=== PATIENT | female | born 1945 | race Caucasian/White ===

== ENCOUNTER 2022-01-22 10:30 | Inpatient (IN) ==
[~2022-01-22 10:30] MED LIST: Buffered Lidocaine 1% SYRIN 1 ml INTRADERM ONE; HYDROcodone/ACETAMIN 5/325 mg TAB PO PRN; Lactated Ringers 1000 ml BAG 1,000 ML IV SCH; Metoclopramide 5 MG/ML VIAL (10 mg) IV PRN; Naloxone 0.4 mg VIAL 0.4 mg/ml 1 ml VIAL IV PRN; Ondansetron 4 mg VIAL 2 MG/ML 2 ml VIAL IV PRN; fentaNYL 100 mcg/2 ml 50 MCG/ML VIAL IV PRN
[2022-02-06] MEDS ORDERED: Buffered Lidocaine 1% SYRIN 1 ml INTRADERM ONE ×2 (06:00→11:49)
[2022-02-06] MEDS ORDERED: Lactated Ringers 1000 ml BAG 1,000 ML IV SCH ×2 (06:00→18:00)
[2022-02-06] MEDS ORDERED: Famotidine IV 10 MG/ML 2 ml VIAL (20 mg) IV ONE (06:00)
[2022-02-06] MEDS ORDERED: Famotidine IV 10 MG/ML 2 ml VIAL (20 mg) ONE (11:49)
[2022-02-06] MEDS ORDERED: Clindamycin 900 MG/D5W BAG 900 MG/50 ML BAG IVPB ONE (11:49)
[2022-02-06] MEDS ORDERED: fentaNYL 100 mcg/2 ml 50 MCG/ML VIAL ONE ×2 (11:59→12:33)
[2022-02-06] MEDS ORDERED: Lidocaine 2% PF 5 ML VIAL ONE ×2 (11:59→12:33)
[2022-02-06] MEDS ORDERED: Midazolam 5 mg/5 ml VIAL 1 mg/ml 5 ml VIAL (5 mg) ONE (11:59)
[2022-02-06] MEDS ORDERED: ROPIVACAINE 5 MG/ML 30 ML BTL (0.5%) ONE (11:59)
[2022-02-06] MEDS ORDERED: Dexamethasone IV 4 MG/ML VIAL 1 ml VIAL ONE (12:33)
[2022-02-06] MEDS ORDERED: Propofol 10 MG/ML 20 ML BTL ONE ×4 (12:33→18:46)
[2022-02-06] MEDS ORDERED: Midazolam 2 mg/2 ml VIAL 1 mg/ml 2 ml VIAL (2 mg) ONE (12:33)
[2022-02-06] MEDS ORDERED: Phenylephrine IV 10 MG/ML 1 ml VIAL ONE (12:33)
[2022-02-06] MEDS ORDERED: Ondansetron 4 mg VIAL 2 MG/ML 2 ml VIAL ONE (12:33)
[2022-02-06] MEDS ORDERED: Bupivacaine 0.5% PF 10 ML SDV VIAL INJ ONE (13:33)
[2022-02-06] MEDS ORDERED: Ondansetron 4 mg VIAL 2 MG/ML 2 ml VIAL IV PRN ×2 (14:21→17:07)
[2022-02-06] MEDS ORDERED: fentaNYL 100 mcg/2 ml 50 MCG/ML VIAL IV PRN (14:21)
[2022-02-06] MEDS ORDERED: Naloxone 0.4 mg VIAL 0.4 mg/ml 1 ml VIAL IV PRN (14:21)
[2022-02-06] MEDS ORDERED: HYDROmorphone 1 MG/1 ML SYRINGE IV PRN (14:21)
[2022-02-06] MEDS ORDERED: Acetaminophen IV 1 GM/100ML 1,000 MG/100 ML BAG IV ONE (14:57)
[2022-02-06] MEDS ORDERED: Ketamine HCL 50 mg/ml 10 ml VIAL (500 MG) ONE (17:01)
[2022-02-06] MEDS ORDERED: Lactulose 30 ml UDC PO PRN (17:07)
[2022-02-06] MEDS ORDERED: Ondansetron ODT 4 mg TAB 4 MG TAB PO PRN (17:07)
[2022-02-06] MEDS ORDERED: Magnesium Hydroxide LIQ 30 ML UDC PO PRN (17:07)
[2022-02-06] MEDS ORDERED: Morphine 2 MG/ML SYRINGE IV PRN (17:07)
[2022-02-06] MEDS ORDERED: Labetalol IV 5 MG/ML 20 ml VIAL ONE (18:57)
[2022-02-06] MEDS ORDERED: HYDROmorphone 0.5 MG/0.5 ML SYRINGE ONE ×2 (19:22→19:24)
[2022-02-06] MEDS ORDERED: HYDROmorphone 1 MG/1 ML SYRINGE ONE (20:00)
[2022-02-06] MEDS: Magnesium Hydroxide LIQ 30 ML UDC PO SCH (22:24)
[2022-02-06] MEDS: Clindamycin 600 MG/D5W BAG 600 MG/50 ML BAG IV SCH (22:52)
[2022-02-07] MEDS: Clindamycin 600 MG/D5W BAG 600 MG/50 ML BAG IV SCH ×2 (06:05→13:45)
[2022-02-07 06:50] LABS: Hematocrit 30 % (35-47); Mean Platelet Volume 9.1 fL (7.4-10.4); Platelet Count 212 10^3/uL (150-450)
[2022-02-07 07:09] LABS: Calcium 8.9 mg/dL (8.6-10.3); Potassium 4.7 mmol/L (3.5-5.0); eGFR CKD-EPI 76.8 (>60)
[2022-02-07] MEDS ORDERED: Vitamin THERAPEUTIC TAB PO SCH (09:00)
[2022-02-07] MEDS: Magnesium Hydroxide LIQ 30 ML UDC PO SCH (09:52)
[2022-02-07 11:42] VITALS: BP 133/67
== END 2022-02-07 15:26 | disposition home health service (06) | DRG 468 ==
LOC: AA 02-06 11:15 → SSU 02-06 21:18
PROVIDERS: ADMIT Orthopaedic Surgery Adult Reconstructive Orthopaedic Surgery; ATTEND Orthopaedic Surgery Adult Reconstructive Orthopaedic Surgery

== ENCOUNTER 2022-02-08 16:19 | Observation (INO) ==
[2022-02-08] MEDS ORDERED: NS 0.9% 1000 ml BAG 1,000 ML IV ONE (17:21)
[2022-02-08] MEDS ORDERED: Magnesium Hydroxide LIQ 30 ML UDC PO PRN (18:55)
[2022-02-08] MEDS ORDERED: Ondansetron 4 mg VIAL 2 MG/ML 2 ml VIAL IV PRN (18:55)
[2022-02-08] MEDS ORDERED: Morphine 2 MG/ML SYRINGE IV PRN (18:55)
[2022-02-08] MEDS ORDERED: Lactulose 30 ml UDC PO PRN (18:55)
[2022-02-08] MEDS ORDERED: Ondansetron ODT 4 mg TAB 4 MG TAB PO PRN (18:55)
[2022-02-08] MEDS: Clindamycin 600 MG/D5W BAG 600 MG/50 ML BAG IV SCH (19:35)
[2022-02-08 19:50] LABS: Albumin 2.6 g/dL (3.2-5.2); Albumin/Globulin Ratio 1.6 (1-3); Calcium 6.6 mg/dL (8.6-10.3); Globulin 1.6 g/dL (2-4); Potassium 3.2 mmol/L (3.5-5.0); Total Bilirubin 0.8 mg/dL (0.2-1.0); Total Protein 4.2 g/dL (6.4-8.9); eGFR CKD-EPI 96.4 (>60)
[2022-02-08 19:58] LABS: Urine Appearance Clear; Urine Bilirubin Negative (Negative); Urine Blood Trace (Intact) (Negative); Urine Color Yellow; Urine Glucose Negative (Negative); Urine Ketones 2+ (40mg/dL) (Negative); Urine Nitrite Negative (Negative); Urine Protein Negative (Negative); Urine Urobilinogen 0.2 (Negative) (Negative)
[2022-02-08 20:25] LABS: Urine Bacteria Absent (Absent); Urine Red Blood Cell Trace(0-2/hpf) (Absent); Urine Squamous Epithelial Cell Present (Absent); Urine White Blood Cell Absent (Absent)
[2022-02-08 21:09] LABS: ABS Lymphocytes 1.5 10^3/ul (1.0-4.8); ABS Monocytes 1.2 10^3/ul (0-0.8); ABS Neutrophils 7.5 10^3/ul (1.5-7.7); Eosinophil % 0.2 %; Hematocrit 25 % (35-47); Hemoglobin 8.7 g/dL (12.0-16.0); Lymphocyte % 14.6 %; Mean Corpuscular HGB Conc 34 g/dL (31-36); Mean Corpuscular Hemoglobin 31 pg (27-31); Mean Corpuscular Volume 91 fL (80-97); Mean Platelet Volume 8.8 fL (7.4-10.4); Platelet Count 191 10^3/uL (150-450); Red Blood Count 2.78 10^6 /uL (3.70-4.87); Red Cell Distribution Width 14 % (10-15); White Blood Count 10.2 10^3/uL (3.5-10.8)
[2022-02-08] MEDS: Magnesium Hydroxide LIQ 30 ML UDC PO SCH (22:10)
[2022-02-08] MEDS: Potassium Chlor 20 meq TAB.ER PO SCH (22:10)
[2022-02-09] MEDS: Clindamycin 600 MG/D5W BAG 600 MG/50 ML BAG IV SCH ×2 (04:46→11:21)
[2022-02-09] MEDS ORDERED: Potassium Chlor 20 meq TAB.ER PO ONE (06:05)
[2022-02-09] MEDS ORDERED: Calcium Gluconate 2 GM in NS 0.9% 100 ml BAG 100 ML IV ONE (07:30)
[2022-02-09] MEDS ORDERED: NS 0.9% 1000 ml BAG 1,000 ML IV SCH (08:30)
[2022-02-09] MEDS: Vitamin THERAPEUTIC TAB PO SCH (08:34)
[2022-02-09] MEDS: Potassium Chlor 20 meq TAB.ER PO SCH ×2 (08:34→20:45)
[2022-02-09] MEDS: Magnesium Hydroxide LIQ 30 ML UDC PO SCH ×2 (08:34→20:48)
[2022-02-09] MEDS: Aspirin EC 81 mg TAB.EC (enteric coated) PO SCH (08:34)
[2022-02-09 11:59] LABS: Calcium 9.3 mg/dL (8.6-10.3); Magnesium 2.2 mg/dL (1.9-2.7); Potassium 4.9 mmol/L (3.5-5.0); eGFR CKD-EPI 91.4 (>60)
[2022-02-10 06:12] LABS: ABS Basophils 0.1 10^3/ul (0-0.2); ABS Eosinophils 0.6 10^3/ul (0-0.6); ABS Lymphocytes 1.6 10^3/ul (1.0-4.8); ABS Monocytes 0.8 10^3/ul (0-0.8); ABS Neutrophils 5.4 10^3/ul (1.5-7.7); Eosinophil % 6.9 %; Hematocrit 26 % (35-47); Hemoglobin 8.4 g/dL (12.0-16.0); Lymphocyte % 19.2 %; Mean Corpuscular HGB Conc 32 g/dL (31-36); Mean Corpuscular Hemoglobin 30 pg (27-31); Mean Corpuscular Volume 93 fL (80-97); Mean Platelet Volume 8.9 fL (7.4-10.4); Nucleated Red Blood Cells % 0.1; Platelet Count 241 10^3/uL (150-450); Red Blood Count 2.84 10^6 /uL (3.70-4.87); Red Cell Distribution Width 14 % (10-15); White Blood Count 8.5 10^3/uL (3.5-10.8)
[2022-02-10 06:42] LABS: Calcium 8.7 mg/dL (8.6-10.3); Potassium 4.9 mmol/L (3.5-5.0); eGFR CKD-EPI 91.4 (>60)
[2022-02-10] MEDS ORDERED: NS 0.9% 1000 ml BAG 1,000 ML IV ONE (07:52)
[2022-02-10] MEDS: Magnesium Hydroxide LIQ 30 ML UDC PO SCH ×2 (09:25→20:41)
[2022-02-10] MEDS: Vitamin THERAPEUTIC TAB PO SCH (09:41)
[2022-02-10] MEDS: Aspirin EC 81 mg TAB.EC (enteric coated) PO SCH (09:41)
[2022-02-10] MEDS: Potassium Chlor 20 meq TAB.ER PO SCH (09:41)
[2022-02-11] MEDS: Magnesium Hydroxide LIQ 30 ML UDC PO SCH ×2 (07:45→21:47)
[2022-02-11] MEDS ORDERED: Iohexol 350 (CONTRAST) 500 ML MDV IV ONE (08:37)
[2022-02-11] MEDS: Aspirin EC 81 mg TAB.EC (enteric coated) PO SCH (08:44)
[2022-02-11] MEDS: Vitamin THERAPEUTIC TAB PO SCH (08:45)
[2022-02-12] MEDS: Aspirin EC 81 mg TAB.EC (enteric coated) PO SCH (10:05)
[2022-02-12] MEDS: Magnesium Hydroxide LIQ 30 ML UDC PO SCH (10:08)
[2022-02-12] MEDS: Vitamin THERAPEUTIC TAB PO SCH (10:08)
[2022-02-12 11:16] VITALS: BP 149/76
== END 2022-02-12 13:30 | disposition home or self-care (01) ==
LOC: ED 16:19 → EDHOLD 16:19 → ICU 02-09 00:09 → SSU 02-09 14:50
PROVIDERS: ADMIT Orthopaedic Surgery Adult Reconstructive Orthopaedic Surgery; ATTEND Orthopaedic Surgery Adult Reconstructive Orthopaedic Surgery